=== PATIENT | male | born 1955 | race Caucasian/White ===

== ENCOUNTER → 2017-11-03 | Outpatient (CLI) | payer OTHER ==
[~2017-11-03] MED LIST: ACET500 PO; ASCO500 PO; ASPI325 PO; ASPI81EC; ATEN25 PO; ATOR10; BACL10 PO; CEPH500 PO; HYDACE5 PO; HYDMOR2 PO; LISI20; LISI20 PO; LORA10ER; LORA1SY PO; METH5 PO; NAPR500; PRAV20 PO; Prednisone20 MG PO; SENN187 PO; TRAM50; VOLTAREN GEL TOP
[2017-11-03 18:57] LABS: Microalb/Creat Ratio UR, Rand 1333.33 mg/g (0.000-30.000)
== END | disposition home or self-care (01) ==
LOC: LAB 14:03 → LAB SHORT 14:03
PROVIDERS: Family Medicine
DX: E11.65 Type 2 diabetes mellitus with hyperglycemia (principal)
CPT/HCPCS: 82043; 82570

== ENCOUNTER 2020-07-16 06:55 | Day surgery (SDC) | payer OTHER ==
[~2020-07-16] VITALS: Ht 177.8 cm; Wt 102.0 kg
[~2020-07-16 06:55] MED LIST changes: +ATEN50 PO; +Allergy Relief10 M1 PO; +NITR.4SL SL; +Norvasc10 MG PO; +Pravachol40 MG PO; +VITAMIN D32000 UNI1 PO; +VOLTAREN ARTHRI20 GM TOP
== END 2020-07-16 09:07 | disposition home or self-care (01) ==
LOC: ORSCSDS 06:55
PROVIDERS: Ophthalmology
PROC: 08RJ3JZ Replacement of Right Lens with Synthetic Substitute, Percutaneous Approach (ICD-10-PCS; principal; 2020-07-16 08:00)
DX: H25.11 Age-related nuclear cataract, right eye (principal); I10 Essential (primary) hypertension; I25.10 Atherosclerotic heart disease of native coronary artery without angina pectoris; I25.2 Old myocardial infarction; J44.9 Chronic obstructive pulmonary disease, unspecified; F17.210 Nicotine dependence, cigarettes, uncomplicated; E11.9 Type 2 diabetes mellitus without complications; E78.00 Pure hypercholesterolemia, unspecified; Z79.899 Other long term (current) drug therapy
CPT/HCPCS: 82947; J2001; J2250; J3010; J3301; J7040; V2632

== ENCOUNTER 2021-03-20 09:08 | Day surgery (SDC) | payer OTHER ==
[~2021-03-20] VITALS: Ht 177.8 cm; Wt 72.2 kg
== END 2021-03-20 11:12 | disposition home or self-care (01) ==
LOC: ORSCSDS 09:08
PROVIDERS: Ophthalmology
PROC: 08RK3JZ Replacement of Left Lens with Synthetic Substitute, Percutaneous Approach (ICD-10-PCS; principal; 2021-03-20 10:30)
DX: H25.12 Age-related nuclear cataract, left eye (principal); I10 Essential (primary) hypertension; I25.2 Old myocardial infarction; G47.33 Obstructive sleep apnea (adult) (pediatric); J44.9 Chronic obstructive pulmonary disease, unspecified; Z87.891 Personal history of nicotine dependence; Z79.82 Long term (current) use of aspirin; Z79.899 Other long term (current) drug therapy
CPT/HCPCS: 82947; J2001; J2250; J3010; J3301; V2632